=== PATIENT | male | born 1940 | race Caucasian/White ===

== ENCOUNTER 2016-06-12 13:50 | Outpatient (CLI) | payer OTHER ==
--- NOTE | 2016-06-12 15:02 | DIAGNOSTIC IMAGING REPORT ---
PROCEDURE: US BILATERAL CAROTID DOPPLER INDICATION: CORONARY ATHEROSCLEROSIS TECHNIQUE: Color Doppler duplex imaging of the carotid and vertebral vessels. COMPARISON: None. FINDINGS: Right carotid system: Internal carotid stenosis of 16-49% Left carotid system: Internal carotid stenosis of 16-49% Vertebral System: Antegrade vertebral artery flow bilaterally. Right common carotid artery peak systolic velocity 77.5 cm/second. Right internal carotid artery peak systolic velocity 68.3 cm/second. Right external carotid artery peak systolic velocity 106.5 cm/second. Right mrkdovhd-nh-fnhjum carotid artery ratio one Right vertebral artery peak systolic velocity 53.8 cm/second. Left common carotid artery peak systolic velocity 76.6 cm/second. Left internal carotid artery peak systolic velocity 84.8 cm/second. Left external carotid artery peak systolic velocity 65.0 cm/second. Left vxvoycpu-yr-czgjko carotid artery ratio 1.4 Left vertebral artery peak systolic velocity 55 cm/second. IMPRESSION: 1. Bilateral internal carotid stenoses of 16-49%. 2. Antegrade vertebral artery flow bilaterally. Velocity criteria are extrapolated from diameter data as defined by the Society of [employer]ologists in Ultrasound Consensus Conference, Radiology 2003; 229; 340-346.
--- NOTE | 2016-06-12 15:02 | DIAGNOSTIC IMAGING REPORT ---
PROCEDURE: US BILATERAL CAROTID DOPPLER INDICATION: CORONARY ATHEROSCLEROSIS TECHNIQUE: Color Doppler duplex imaging of the carotid and vertebral vessels. COMPARISON: None. FINDINGS: Right carotid system: Internal carotid stenosis of 16-49% Left carotid system: Internal carotid stenosis of 16-49% Vertebral System: Antegrade vertebral artery flow bilaterally. Right common carotid artery peak systolic velocity 77.5 cm/second. Right internal carotid artery peak systolic velocity 68.3 cm/second. Right external carotid artery peak systolic velocity 106.5 cm/second. Right xyehavne-jj-mpwpmb carotid artery ratio one Right vertebral artery peak systolic velocity 53.8 cm/second. Left common carotid artery peak systolic velocity 76.6 cm/second. Left internal carotid artery peak systolic velocity 84.8 cm/second. Left external carotid artery peak systolic velocity 65.0 cm/second. Left foiapmej-iw-gmilfx carotid artery ratio 1.4 Left vertebral artery peak systolic velocity 55 cm/second. IMPRESSION: 1. Bilateral internal carotid stenoses of 16-49%. 2. Antegrade vertebral artery flow bilaterally. Velocity criteria are extrapolated from diameter data as defined by the [employer] of [employer]iologists in Ultrasound Consensus Conference, Radiology 2003; 229; 340-346.
== END 2016-06-12 23:00 ==
LOC: US SRH 13:50
DX: I25.10 Atherosclerotic heart disease of native coronary artery without angina pectoris (principal)